=== PATIENT | female | born 1960 | race Native Hawaiian/Other Pacific Islander ===

== ENCOUNTER → 2020-02-10 13:41 | Outpatient (CLI) | payer OTHER, SELFPAY ==
[2020-02-10 14:45] LABS: Add Manual Diff / Slide Review NO; Basophils Absolute Auto 0 /uL (0-100); Basophils Percent Auto 0.7 % (0-2); Eosinophils Absolute Auto 100 /uL (0-450); Eosinophils Percent Auto 0.7 % (2-4); Hematocrit 42.8 % (36-46); Lymphocytes Absolute Auto 2800 /uL (1100-4500); Lymphocytes Percent Auto 39.1 % (25-40); Mean Corpuscular HGB Conc 32.7 % (30-36); Mean Corpuscular Hemoglobin 29.5 PG (26-34); Mean Corpuscular Volume 90.3 fL (80-100); Monocytes Absolute Auto 500 /uL (0-900); Monocytes Percent Auto 6.3 % (3-14); Neutrophils Absolute Auto 3800 /uL (1500-7000); Neutrophils Percent Auto 53.2 % (50-75); Platelet Count 232 X10^3/uL (150-400); Red Blood Cell Count 4.74 X10^6/uL (4.0-5.2); Red Cell Distribution Width 14.2 % (11.6-14.8); White Blood Cell Count 7.2 X10^3/uL (4.5-11.0)
[2020-02-10 15:03] LABS: Hemoglobin A1C% w Est Avg Glu 5.4 % (4.0-6.0)
[2020-02-10 16:05] LABS: Alanine Aminotransferase 63 IU/L (<35); Albumin 4.6 g/dL (3.5-5.0); Albumin Globulin Ratio 1.8 (1.0-2.8); Alkaline Phosphatase 111 U/L (38-126); Aspartate Aminotransferase 58 IU/L (14-36); BUN Creatinine Ratio 15.9 (6-22); Bilirubin Total 0.4 mg/dL (0.2-1.3); Blood Urea Nitrogen 11 mg/dL (7-17); Calcium 10.1 mg/dL (8.4-10.2); Carbon Dioxide 30 mmol/L (22-32); Chloride 103 mmol/L (98-107); Cholesterol 251 mg/dL (140-199); Estimated Glomerular Filt Rate > 60.0 mL/min (>60); Globulin 2.6 g/dL (1.7-4.1); Glucose 97 mg/dL (70-100); HDL Cholesterol 86 mg/dL (40-60); HEMOLYSIS < 15 (0-50); LDL Cholesterol Calculated 147 mg/dL (<100); Potassium 4.7 mmol/L (3.4-5.1); Sodium 138 mmol/L (137-145); Total Protein 7.2 g/dL (6.3-8.2); Triglycerides 88 mg/dL (35-150)
[2020-02-10 17:20] LABS: Thyroid Stimulating Hormone 2.23 uIU/mL (0.47-4.68)
== END ==
PROVIDERS: PCP Family Medicine; Referring Provider Family Medicine; Visit Provider Family Medicine
DX: Z12.11 Encounter for screening for malignant neoplasm of colon (principal); Z13.1 Encounter for screening for diabetes mellitus; Z13.220 Encounter for screening for lipoid disorders; Z13.29 Encounter for screening for other suspected endocrine disorder; Z76.89 Persons encountering health services in other specified circumstances; M35.9 Systemic involvement of connective tissue, unspecified
CPT/HCPCS: 36415; 80053; 80061; 83036; 84443; 85025

== ENCOUNTER → 2020-03-10 08:54 | Outpatient (CLI) | payer OTHER, SELFPAY ==
[2020-03-14 10:08] LABS: Fecal Immunochemical Test Negative (Negative)
== END ==
PROVIDERS: PCP Family Medicine; Referring Provider Family Medicine; Visit Provider Family Medicine
DX: M35.9 Systemic involvement of connective tissue, unspecified (principal); Z12.11 Encounter for screening for malignant neoplasm of colon; Z13.1 Encounter for screening for diabetes mellitus; Z13.220 Encounter for screening for lipoid disorders; Z13.29 Encounter for screening for other suspected endocrine disorder; Z76.89 Persons encountering health services in other specified circumstances
CPT/HCPCS: 82274

== ENCOUNTER → 2020-08-04 09:04 | Outpatient (CLI) | payer OTHER, SELFPAY ==
--- NOTE | 2020-08-04 09:05 | DI.MG.S_ITS ---
BILATERAL DIGITAL SCREENING MAMMOGRAM 3D/2D WITH CAD: 08/04/2020 CLINICAL: Routine screening. Family history of breast cancer. Comparison is made to exams dated: 09/25/2016 mammogram, 09/30/2017 mammogram, and 11/19/2018 mammogram - outside location. The tissue of both breasts is heterogeneously dense. This may lower the sensitivity of mammography. Current study was also evaluated with a Computer Aided Detection (CAD) system. There is a 1.4 cm irregular equal density focal asymmetry with increasing heterogeneous calcifications in the right breast at 5 o'clock posterior depth. This appears more prominent. No other significant masses, calcifications, or other findings are seen in either breast. IMPRESSION: INCOMPLETE: NEEDS ADDITIONAL IMAGING EVALUATION The 1.4 cm irregular equal density focal asymmetry with apparent increasing calcifications in the right breast is indeterminate. Mediolateral and spot magnification views as well as additional views with possible ultrasound are recommended. This exam was interpreted at Station ID: [id number]. NOTE: For mammograms, a report in lay terms will be sent to the patient. Approximately 15% of breast malignancies will not be visualized mammographically. In the management of a palpable breast mass, a negative mammogram must not discourage biopsy of a clinically suspicious lesion. Electronically Signed By: Raphael Carranza M.D. aty/:08/06/2020 08:01:21 letter sent: Additional Imaging Needed ACR BI-RADS Category 0: Incomplete 3340F
== END ==
PROVIDERS: PCP Family Medicine; Referring Provider Family Medicine; Visit Provider Family Medicine
DX: Z12.31 Encounter for screening mammogram for malignant neoplasm of breast (principal); Z80.3 Family history of malignant neoplasm of breast
CPT/HCPCS: 77063; 77067

== ENCOUNTER → 2020-08-07 14:10 | Outpatient (CLI) | payer OTHER, SELFPAY ==
--- NOTE | 2020-08-07 14:15 | DI.RAD.S_ITS ---
PROCEDURE: XR HIP W PEL IF DONE LT 2V INDICATIONS: Persistent and progressive left hip pain TECHNIQUE: AP pelvis with lateral view(s) of the left hip(s). COMPARISON: None. FINDINGS: Bones: No fractures or dislocations. Pelvic ring appears intact. No suspicious bony lesions. Mild symmetric hip joint degeneration bilaterally. Soft tissues: The visualized bowel gas pattern is normal. No suspicious soft tissue calcifications. IMPRESSION: 1. No acute osseous abnormalities. 2. Mild symmetric hip joint degeneration. If clinical symptoms persist or clinical suspicion for internal derangement is high, MRI is suggested for further evaluation. Dictated by: Gwen Vaughn M.D. on 08/07/2020 at 17:15 Approved by: Gwen Vaughn M.D. on 08/07/2020 at 17:16
[2020-08-07 15:15] LABS: Alanine Aminotransferase 35 IU/L (<35); Albumin 4.4 g/dL (3.5-5.0); Albumin Globulin Ratio 1.4 (1.0-2.8); Alkaline Phosphatase 127 U/L (38-126); Aspartate Aminotransferase 43 IU/L (14-36); BUN Creatinine Ratio 18.9 (6-22); Bilirubin Total 0.4 mg/dL (0.2-1.3); Blood Urea Nitrogen 14 mg/dL (7-17); Calcium 9.5 mg/dL (8.4-10.2); Carbon Dioxide 30 mmol/L (22-32); Chloride 103 mmol/L (98-107); Cholesterol 257 mg/dL (140-199); Estimated Glomerular Filt Rate > 60.0 mL/min (>60); Globulin 3.1 g/dL (1.7-4.1); Glucose 94 mg/dL (70-100); HDL Cholesterol 83 mg/dL (40-60); HEMOLYSIS < 15 (0-50); LDL Cholesterol Calculated 157 mg/dL (<100); Potassium 3.8 mmol/L (3.4-5.1); Sodium 138 mmol/L (137-145); Total Protein 7.5 g/dL (6.3-8.2); Triglycerides 87 mg/dL (35-150)
== END ==
PROVIDERS: PCP Family Medicine; Referring Provider Family Medicine; Visit Provider Family Medicine
DX: M25.552 Pain in left hip (principal); M16.0 Bilateral primary osteoarthritis of hip; E78.5 Hyperlipidemia, unspecified; M35.9 Systemic involvement of connective tissue, unspecified; Z13.1 Encounter for screening for diabetes mellitus; Z13.220 Encounter for screening for lipoid disorders; Z13.6 Encounter for screening for cardiovascular disorders
CPT/HCPCS: 36415; 73502; 80053; 80061

== ENCOUNTER → 2020-08-29 14:50 | Outpatient (CLI) | payer OTHER, SELFPAY ==
--- NOTE | 2020-08-29 | DI.US.S_ITS ---
LIMITED ULTRASOUND OF RIGHT BREAST: 08/29/2020 CLINICAL: Patient returns today to evaluate a focal asymmetry in the right breast. No prior exams were available for comparison. Color flow, real-time, and Doppler ultrasound of the right breast 5-6 o'clock region were performed. Caal scale images of the real-time examination were reviewed. There is a 1.4 cm wider than tall oval mass with a microlobulated margin in the right breast at 5 o'clock posterior depth. This oval mass is hypoechoic with no posterior acoustic shadowing or enhancement. This correlates with mammography findings. There are related calcifications. Color flow imaging demonstrates that there is no vascularity present. IMPRESSION: PROBABLY BENIGN The 1.4 cm wider than tall oval mass in the right breast most likely is a fibroadenoma and is probably benign. Follow-up mammogram and ultrasound in 6 months is recommended to document stability. This exam was interpreted at Station ID: [id number]. Electronically Signed By: Baltazar Vasques M.D. jr/:08/29/2020 16:21:22 letter sent: Followup Recommended Ultrasound BI-RADS: 3 Probably benign
--- NOTE | 2020-08-29 | DI.MG.S_ITS ---
UNILATERAL RIGHT DIGITAL DIAGNOSTIC MAMMOGRAM 3D/2D WITH ADDITIONAL VIEWS: 08/29/2020 CLINICAL: Additional evaluation requested from prior study. Comparison is made to exams dated: 08/04/2020 mammogram - [facility], 11/19/2018 mammogram, and 09/30/2017 mammogram - outside location. The tissue of right breast is heterogeneously dense. This may lower the sensitivity of mammography. There is a 1.4 cm irregular equal density focal asymmetry with heterogeneous calcifications in the right breast at 5 o'clock posterior depth. This is more prominent. No other significant masses or calcifications are seen in the breast. 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 An ultrasound is recommended for further characterization, and has been scheduled to immediately follow this examination. This exam was interpreted at Station ID: [id number]. NOTE: For mammograms, a report in lay terms will be sent to the patient. Approximately 15% of breast malignancies will not be visualized mammographically. In the management of a palpable breast mass, a negative mammogram must not discourage biopsy of a clinically suspicious lesion. Electronically Signed By: Baltazar Vasques M.D. jr/:08/29/2020 16:16:24 ACR BI-RADS Category 0: Incomplete 3340F
== END ==
PROVIDERS: PCP Family Medicine; Referring Provider Family Medicine; Visit Provider Family Medicine
DX: R92.8 Other abnormal and inconclusive findings on diagnostic imaging of breast (principal); N63.14 Unspecified lump in the right breast, lower inner quadrant
CPT/HCPCS: 76642; 77065; G0279

== ENCOUNTER → 2021-03-11 08:28 | Outpatient (CLI) | payer OTHER, SELFPAY ==
[2021-03-11 09:09] LABS: Alanine Aminotransferase 25 IU/L (<35); Albumin 4.3 g/dL (3.5-5.0); Albumin Globulin Ratio 1.6 (1.0-2.8); Alkaline Phosphatase 117 U/L (38-126); Aspartate Aminotransferase 36 IU/L (14-36); BUN Creatinine Ratio 17.8 (6-22); Bilirubin Total 0.4 mg/dL (0.2-1.3); Blood Urea Nitrogen 13 mg/dL (7-17); Calcium 9.8 mg/dL (8.4-10.2); Carbon Dioxide 31 mmol/L (22-32); Chloride 105 mmol/L (98-107); Cholesterol 193 mg/dL (140-199); Estimated Glomerular Filt Rate > 60.0 mL/min (>60); Globulin 2.7 g/dL (1.7-4.1); Glucose 111 mg/dL (70-100); HDL Cholesterol 76 mg/dL (40-60); HEMOLYSIS < 15 (0-50); LDL Cholesterol Calculated 102 mg/dL (<100); Potassium 4.8 mmol/L (3.4-5.1); Sodium 141 mmol/L (137-145); Triglycerides 73 mg/dL (35-150)
--- NOTE | 2021-03-11 13:47 | DI.MG.S_ITS ---
UNILATERAL RIGHT DIGITAL DIAGNOSTIC MAMMOGRAM 3D/2D: 03/11/2021 CLINICAL: Short term follow up of the right breast. Comparison is made to exams dated: 08/29/2020 ultrasound, 08/29/2020 mammogram, 08/04/2020 mammogram - [facility], 11/19/2018 mammogram, 09/30/2017 mammogram, and 09/25/2016 mammogram - outside location. The tissue of right breast is heterogeneously dense. This may lower the sensitivity of mammography. There is an irregular equal density focal asymmetry with heterogeneous calcifications in the right breast at 5 o'clock posterior depth. This is not significantly changed. No other significant masses or calcifications are seen in the breast. IMPRESSION: INCOMPLETE: NEEDS ADDITIONAL IMAGING EVALUATION The irregular equal density focal asymmetry in the right breast most likely is a degenerating fibroadenoma and is indeterminate. An ultrasound is recommended. This exam was interpreted at Station ID: [id number]. NOTE: For mammograms, a report in lay terms will be sent to the patient. Approximately 15% of breast malignancies will not be visualized mammographically. In the management of a palpable breast mass, a negative mammogram must not discourage biopsy of a clinically suspicious lesion. Electronically Signed By: Sunny chowdhury/tasha:03/11/2021 15:50:51 ACR BI-RADS Category 0: Incomplete 3340F
--- NOTE | 2021-03-11 13:47 | DI.US.S_ITS ---
LIMITED ULTRASOUND OF RIGHT BREAST: 03/11/2021 CLINICAL: Patient returns today to evaluate a focal asymmetry in the right breast. Comparison is made to exams dated: 03/11/2021 mammogram, 08/29/2020 ultrasound, 08/29/2020 mammogram, 08/04/2020 mammogram - [facility], 11/19/2018 mammogram, and 09/30/2017 mammogram - outside location. Color flow ultrasound of the right breast was performed. Caal scale images of the real-time examination were reviewed. There is a 1.6 cm x 2.3 cm x 0.9 cm oval mass with a microlobulated margin in the right breast at 6 o'clock posterior depth 6 cm from the nipple. This oval mass is hypoechoic. This abnormality is not significantly changed and correlates with mammography findings. There are related calcifications. IMPRESSION: PROBABLY BENIGN The 1.6 cm x 2.3 cm x 0.9 cm oval mass in the right breast most likely is a fibroadenoma and is probably benign. A follow-up mammogram and an ultrasound in 6 months is recommended to demonstrate stability. This exam was interpreted at Station ID: [id number]. Electronically Signed By: Sunny chowdhury/tasha:03/11/2021 15:53:16 letter sent: Followup Recommended Ultrasound BI-RADS: 3 Probably benign
== END ==
PROVIDERS: PCP Family Medicine; Referring Provider Family Medicine; Visit Provider Family Medicine
DX: D24.1 Benign neoplasm of right breast (principal); N63.15 Unspecified lump in the right breast, overlapping quadrants; E78.5 Hyperlipidemia, unspecified; R92.8 Other abnormal and inconclusive findings on diagnostic imaging of breast
CPT/HCPCS: 36415; 76642; 77065; 80053; 80061; G0279